=== PATIENT | female | born 1940 | race Caucasian/White ===

== ENCOUNTER → 2017-01-22 | Outpatient (CLI) | payer MEDICARE, MEDICAID | END | disposition home or self-care (01) | LOC: RAD 12:03 | PROVIDERS: ATTEND Specialist | DX: M47.896 Other spondylosis, lumbar region (principal) | CPT/HCPCS: 72100 ==

== ENCOUNTER 2023-12-26 18:00 | Inpatient (IN) | payer MEDICARE, MEDICAID ==
[~2023-12-26] VITALS: Ht 144.8 cm; Wt 49.9 kg
[2023-12-26 18:39] LABS: BASOPHILS % 0.5 % (0.0-2.0); EOSINOPHILS % 0.2 % (0.0-5.0); HEMATOCRIT. 34.5 % (36.0-48.0); HEMOGLOBIN. 12.5 g/dL (12.0-16.0); LYMPHOCYTES % 11.1 % (20.0-50.0); MEAN CORPUSCULAR HEMOGLOBIN 34.8 pg (28.0-32.0); MEAN CORPUSCULAR HGB CONC 36.1 g/dL (31.0-37.0); MEAN CORPUSCULAR VOLUME 96.4 fL (81.0-99.0); MEAN PLATELET VOLUME 8.1 fl (7.4-10.4); MONOCYTES % 5.4 % (2.0-8.0); NEUTROPHILS % 82.8 % (40.0-76.0); PLATELET 151 x1000/uL (130-400); RED BLOOD CELL COUNT 3.58 mill/uL (4.2-5.4); RED CELL DISTRIBUTION WIDTH 12.4 % (11.6-14.6); WHITE BLOOD COUNT 10.4 x1000/uL (4.5-11.0)
[2023-12-26 18:45] LABS: CHLORIDE 91 mEq/L (98-107); POTASSIUM 3.6 mEq/L (3.5-5.1); SODIUM 123 mEq/L (136-145)
[2023-12-26 18:46] LABS: CALCIUM 8.9 mg/dL (8.7-10.4); CARBON DIOXIDE 24 mEq/L (21-32)
[2023-12-26 18:50] LABS: DIFFERENTIAL COMMENT 1
[2023-12-26 18:51] LABS: CREATININE 0.8 mg/dL (0.6-1.0); GLUCOSE 146 mg/dL (70-105); UREA NITROGEN BLOOD 11 mg/dL (9-23)
[2023-12-26 18:52] LABS: TROPONIN I HIGH SENSITIVITY 10 ng/L (3.0-34)
[2023-12-26 18:53] LABS: ALANINE AMINOTRANSFERASE 19 IU/L (10-49); ALBUMIN 4.8 g/dL (3.2-4.8); ASPARTATE AMINOTRANSFERASE 33 IU/L (<34); BILIRUBIN DIRECT 0.3 mg/dL (<=3.0); BILIRUBIN TOTAL 1.3 mg/dL (0.1-1.0); PROTEIN TOTAL 6.9 g/dL (6.0-8.3)
[2023-12-26 20:40] LABS: PROTHROMBIN TIME 10.7 sec (9.6-11.0)
[2023-12-26 20:57] LABS: TROPONIN I HIGH SENSITIVITY 38 ng/L (3.0-34)
[2023-12-26] MEDS: METOCLOPRAMIDE HCL 10MG/2ML VIAL IV ONE (21:19)
[2023-12-26] MEDS: ACETAMINOPHEN 325MG TABLET PO ONE (21:19)
[2023-12-26] MEDS: SODIUM CHLORIDE 0.9% 500 ML IV ONE (21:19)
[2023-12-26 21:48] LABS: CLARITY URINE CLEAR (CLEAR); COLOR URINE YELLOW (YELLOW); GLUCOSE URINE NEGATIVE (NEGATIVE); KETONES URINE 3+ (NEGATIVE); LEUKOCYTE ESTERASE URINE 2+ (NEGATIVE); NITRITE URINE NEGATIVE (NEGATIVE); OCCULT BLOOD URINE TRACE (NEGATIVE); PROTEIN URINE TRACE (NEGATIVE); SPECIFIC GRAVITY URINE 1.016 (1.005-1.030); UROBILINOGEN URINE 0.2 E.U./dL (0.2-1.0)
[2023-12-26] MEDS: ASPIRIN 325MG TABLET PO ONE (21:59)
[2023-12-26 22:27] LABS: WBC URINE 25-50 /hpf (0-2)
[2023-12-26 22:28] LABS: BACTERIA URINE NONE SEEN; SQUAMOUS EPITHELIAL CELL URINE RARE /lpf (RARE/1+)
[2023-12-27] VITALS: BP 106/52; PULSE 61; RESP 20; TEMP 36.9184
[2023-12-27 01:09] VITALS: BP 106/52; PULSE 61; RESP 18; TEMP 36.89184; O2SAT 96
[2023-12-27] MEDS ORDERED: DOCUSATE SODIUM 100MG CAPSULE PO PRN (01:15)
[2023-12-27] MEDS ORDERED: ACETAMINOPHEN 325MG TABLET PO PRN ×2 (01:15)
[2023-12-27] MEDS: SODIUM CHLORIDE 0.9% 1,000 ML IV SCH (01:15)
[2023-12-27] MEDS ORDERED: ONDANSETRON HCL 4MG/2ML INJ IV PRN (01:15)
[2023-12-27] MEDS ORDERED: GUAIFENESIN 200MG/10ML SUGAR FREE UDC PO PRN (01:15)
[2023-12-27] MEDS ORDERED: CLONIDINE 0.1MG TABLET PO PRN (01:15)
[2023-12-27] MEDS ORDERED: IPRATROPIUM/ALBUTEROL 0.5-3(2.5)MG/3ML NEB HHN PRN (01:15)
[2023-12-27] MEDS ORDERED: DEXTROSE 50% WATER 50ML SYRINGE IV PRN (02:00)
[2023-12-27 04:19] LABS: SODIUM URINE RANDOM 27 mEq/L
[2023-12-27 04:26] LABS: *AMPHETAMINES SCREEN URINE NEGATIVE (NEGATIVE); *BARBITURATES SCREEN URINE NEGATIVE (NEGATIVE); *BENZODIAZEPINES SCREEN URINE NEGATIVE (NEGATIVE); *COCAINE SCREEN URINE NEGATIVE (NEGATIVE); CANNABINOID URINE SCREEN NEGATIVE (NEGATIVE); ECSTASY MDMA SCREEN URINE NEGATIVE (NEGATIVE); METHADONE URINE SCREEN NEGATIVE (NEGATIVE); OPIATES URINE SCREEN NEGATIVE (NEGATIVE); PHENCYCLIDINE URINE SCREEN NEGATIVE (NEGATIVE)
[2023-12-27 04:48] LABS: OSMOLALITY URINE 124 mOsm/kg (500-850)
[2023-12-27] MEDS: CEFTRIAXONE 1GM/50ML 50 ML IV NR (05:20)
[2023-12-27] MEDS: PANTOPRAZOLE 40MG DR TABLET PO SCH (06:21)
[2023-12-27] MEDS: BLOOD SUGAR DIAGNOSTIC STRIP TEST SCH (06:24)
[2023-12-27] MEDS: INSULIN LISPRO 100 UNITS/ML SUBCUT SCH (06:31)
[2023-12-27 07:03] LABS: CREATINE KINASE 368 IU/L (34-145)
[2023-12-27 07:05] LABS: CALCIUM 8.7 mg/dL (8.7-10.4); CARBON DIOXIDE 22 mEq/L (21-32); CHLORIDE 104 mEq/L (98-107); POTASSIUM 3.6 mEq/L (3.5-5.1); SODIUM 136 mEq/L (136-145)
[2023-12-27 07:10] LABS: T4 FREE 1.15 ng/dL (0.89-1.76)
[2023-12-27 07:11] LABS: CREATININE 0.8 mg/dL (0.6-1.0); GLUCOSE 82 mg/dL (70-105); IRON 83 ug/dL (50-170); UREA NITROGEN BLOOD 10 mg/dL (9-23)
[2023-12-27 07:12] LABS: CHOLESTEROL 196 mg/dL (<200); HDL CHOLESTEROL 66 mg/dL (>65); LDL CHOLESTEROL 128 mg/dL (5-100); TRIGLYCERIDE 86 mg/dL (0-150)
[2023-12-27 07:14] LABS: TOTAL IRON BINDING CAPACITY 268 ug/dl (250-425)
[2023-12-27 08:00] VITALS: BP 106/57; PULSE 72; RESP 18; TEMP 36.9474; O2SAT 98
[2023-12-27] MEDS: ASPIRIN 81MG EC TABLET PO SCH (08:31)
[2023-12-27 08:46] LABS: TROPONIN I HIGH SENSITIVITY 65 ng/L (3.0-34)
[2023-12-27] MEDS: ENOXAPARIN 40MG/0.4ML SYR SUBCUT SCH (13:00)
[2023-12-27 13:27] LABS: TROPONIN I HIGH SENSITIVITY 48 ng/L (3.0-34)
[2023-12-27 16:02] VITALS: BP 95/44; PULSE 58; RESP 20; TEMP 36.6696; O2SAT 98
[2023-12-27 17:35] LABS: CREATINE KINASE 477 IU/L (34-145)
[2023-12-27 20:00] VITALS: BP 119/48; PULSE 61; RESP 19; TEMP 36.6696; O2SAT 97
[2023-12-27] MEDS: ATORVASTATIN CALCIUM 20MG TABLET PO SCH (21:06)
[2023-12-27 22:40] LABS: TROPONIN I HIGH SENSITIVITY 39 ng/L (3.0-34)
[2023-12-28 00:22] VITALS: BP 104/74; PULSE 62; RESP 19; TEMP 36.83628; O2SAT 97
[2023-12-28 04:00] VITALS: BP 114/41; PULSE 97; RESP 20; TEMP 36.78072; O2SAT 97
[2023-12-28 07:06] LABS: BASOPHILS % 0.4 % (0.0-2.0); CARBON DIOXIDE 23 mEq/L (21-32); CHLORIDE 110 mEq/L (98-107); EOSINOPHILS % 2.6 % (0.0-5.0); HEMATOCRIT. 33.6 % (36.0-48.0); HEMOGLOBIN. 11.5 g/dL (12.0-16.0); LYMPHOCYTES % 30.9 % (20.0-50.0); MEAN CORPUSCULAR HEMOGLOBIN 33.4 pg (28.0-32.0); MEAN CORPUSCULAR HGB CONC 34.1 g/dL (31.0-37.0); MEAN CORPUSCULAR VOLUME 97.8 fL (81.0-99.0); MEAN PLATELET VOLUME 8.4 fl (7.4-10.4); MONOCYTES % 10.4 % (2.0-8.0); NEUTROPHILS % 55.7 % (40.0-76.0); PLATELET 126 x1000/uL (130-400); POTASSIUM 3.7 mEq/L (3.5-5.1); RED BLOOD CELL COUNT 3.44 mill/uL (4.2-5.4); RED CELL DISTRIBUTION WIDTH 12.7 % (11.6-14.6); SODIUM 140 mEq/L (136-145); WHITE BLOOD COUNT 4.1 x1000/uL (4.5-11.0)
[2023-12-28 07:07] LABS: CALCIUM 8.7 mg/dL (8.7-10.4)
[2023-12-28 07:12] LABS: CREATININE 0.8 mg/dL (0.6-1.0); GLUCOSE 90 mg/dL (70-105); UREA NITROGEN BLOOD 14 mg/dL (9-23)
[2023-12-28 08:00] VITALS: BP 109/66; PULSE 98; RESP 20; TEMP 36.61404; O2SAT 98
[2023-12-28] MEDS ORDERED: ATOR20TA PO (11:34)
[2023-12-28] MEDS ORDERED: ASPI-1406 PO (11:34)
[2023-12-28] MEDS ORDERED: SULF1TAB48 MT (11:34)
[2023-12-28 13:32] VITALS: BP 139/89; PULSE 93; RESP 18; TEMP 36.78072; O2SAT 97
[2023-12-28 13:35] VITALS: BP 139/89; PULSE 93; TEMP 98.2; O2SAT 98
== END 2023-12-28 14:35 | disposition home or self-care (01) | DRG 640 ==
LOC: ER 18:00 → 3WST 22:55 → EDBEDREQ 22:58 → EDBEDREQTM 22:58
PROVIDERS: ADMIT Internal Medicine Geriatric Medicine; ATTEND Internal Medicine Geriatric Medicine
DX: E87.1 Hypo-osmolality and hyponatremia (principal); I21.A1 Myocardial infarction type 2; N39.0 Urinary tract infection, site not specified; M81.0 Age-related osteoporosis without current pathological fracture; Z66 Do not resuscitate; E11.65 Type 2 diabetes mellitus with hyperglycemia; I10 Essential (primary) hypertension; I25.10 Atherosclerotic heart disease of native coronary artery without angina pectoris; Z79.4 Long term (current) use of insulin; Z79.82 Long term (current) use of aspirin; Z79.899 Other long term (current) drug therapy; Z90.710 Acquired absence of both cervix and uterus
CPT/HCPCS: 36415; 71045; 80048; 80061; 80076; 80305; 81003; 82550; 82962; 83036; 83540; 83550; 83735; 83930; 83935; 84100; 84145; 84300; 84439; 84443; 84484; 85025; 85379; 93005; 93306; 99285; J0696; J1650; J2765; J7030; J7040

== ENCOUNTER → 2024-06-02 | Outpatient (CLI) | payer MEDICARE, MEDICAID ==
[~2024-06-02] MED LIST: ASPI-1406 PO; ATOR20TA PO; SULF1TAB48 MT
== END | disposition home or self-care (01) ==
LOC: RAD 08:05
PROVIDERS: ATTEND Internal Medicine Geriatric Medicine
DX: M81.0 Age-related osteoporosis without current pathological fracture (principal)
CPT/HCPCS: 77080